=== PATIENT | female | born 1965 | race Caucasian/White ===

== ENCOUNTER 2020-08-26 19:50 | Emergency (ER) | payer BC ==
[2020-08-26 20:07] VITALS: BP 170/72; PULSE 95
--- NOTE | 2020-08-26 20:27 | EDM.PDOC ---
ED HPI GENERAL MEDICAL PROBLEM - General Chief Complaint: Lower Extremity Injury/Pain Stated Complaint: FELL DOWN STEP, TOP OF LEFT FOOT BUMP PER PT Time Seen by Provider: 08/26/20 20:10 Source of Information: Reports: Patient, RN, RN Notes Reviewed History Limitations: Reports: No Limitations - History of Present Illness INITIAL COMMENTS - FREE TEXT/NARRATIVE: Natalya is a 55 y/o female who presents to the ED via personal vehicle with complaints of pain to left, lateral foot. The patient reports about six hours she tripped down to stairs and injured the foot. She has noticed an increase and bruising and swelling to the extremity over the past several hours, prompting her to present today. She attest to inability to ambulate on the extremity. She denies loss of motor or sensory function to the foot. She has taken no medications for pain but rates her pain at a 4/10 while at rest and 9/10 while attempting to ambulate. Left Foot Pain Score (Numeric/FACES): 4 - Related Data Allergies Allergy/AdvReac Type Severity Reaction Status Date / Time No Known Allergies Allergy Verified 11/30/15 18:17 Home Meds: Home Meds FLUoxetine [PROzac] 40 mg PO BEDTIME 11/30/15 [History] LORazepam [Ativan] 1 mg PO DAILY 11/30/15 [History] Zolpidem [Ambien] 10 mg PO DAILY 11/30/15 [History] Past Medical History HEENT History: Reports: None Other Cardiovascular History: ablation done 10 years ago Respiratory History: Reports: Bronchitis, Recurrent, Pneumonia, Recurrent Gastrointestinal History: Reports: None Genitourinary History: Reports: None [employer] History: Reports: None Musculoskeletal History: Reports: None Neurological History: Reports: None Psychiatric History: Reports: Depression Endocrine/Metabolic History: Reports: None Hematologic History: Reports: None Immunologic History: Reports: None Oncologic (Cancer) History: Reports: None Dermatologic History: Reports: None - Infectious Disease History Infectious Disease History: Reports: Chicken Pox - Past Surgical History Head Surgeries/Procedures: Reports: None Social & Family History - Caffeine Use Caffeine Use: Reports: Soda Review of Systems - Review of Systems Review Of Systems: Comprehensive ROS is negative, except as noted in HPI. ED EXAM, GENERAL - Physical Exam Exam: See Below Exam Limited By: No Limitations General Appearance: Alert, No Apparent Distress Eye Exam: Bilateral Eye: EOMI, Normal Inspection, PERRL (3mm) Ears: Normal External Exam, Hearing Grossly Normal Nose: Normal Inspection Throat/Mouth: Normal Inspection, Normal Oropharynx, Normal Voice, No Airway Compromise Head: Atraumatic, Normocephalic Neck: Normal Inspection, Supple, Non-Tender, Full Range of Motion Respiratory/Chest: No Respiratory Distress, Lungs Clear, Normal Breath Sounds, No Accessory Muscle Use, Chest Non-Tender Cardiovascular: Normal Peripheral Pulses, Regular Rate, Rhythm, No Edema, No Gallop, No JVD, No Murmur, No Rub Peripheral Pulses: 2+: Radial (L), Radial (R), Dorsalis Pedis (L), Dorsalis Pedis (R) GI/Abdominal: Normal Bowel Sounds, Soft, No Distention, No Abnormal Bruit, No Mass, Pelvis Stable (Female) Exam: Deferred Rectal (Female) Exam: Deferred Back Exam: Normal Inspection, Full Range of Motion Extremities: Normal Capillary Refill, Leg Pain (To left, lateral dorsal foot), Limited Range of Motion (To left foot). No: Joint Swelling, Increased Warmth, Mottled, Pallor, Redness Neurological: Alert, Oriented, CN II-XII Intact, Normal Cognition, No Motor/Sensory Deficits, Abnormal Gait (Unable to ambulate without pain/limping) Psychiatric: Normal Affect, Normal Mood Skin Exam: Warm, Dry, Intact, Normal Color, No Rash, Ecchymosis (To left, lateral dorsal foot). No: Cyanosis, Erythema, Increased Warmth, Jaundice, Mottled, Pallor, Petechiae Course - Vital Signs Last Recorded V/S: Last Vital Signs Temp 98.8 F 08/26/20 20:02 Pulse 95 08/26/20 20:02 Resp 16 08/26/20 20:02 BP 170/72 H 08/26/20 20:02 Pulse Ox 98 08/26/20 20:02 - Orders/Labs/Meds Meds: Medications Discontinued Medications Generic Name Dose Route Start Last Admin Trade Name Narinderq PRN Reason Stop Dose Admin Ibuprofen 400 mg 08/26/20 20:31 08/26/20 20:37 Ibuprofen 400 Mg Tab PO 08/26/20 20:32 400 mg ONETIME ONE Administration - Radiology Interpretation Free Text/Narrative:: [facility] [place] [facility] Final Radiology Report Call: [phone] assistance Online chat: [email or web address] Name: NATALYA PICKERING Age: 55Years F Date: 08/26/2020 SSN: -- : [id number] Study: CR FOOT COMP MIN 3V LT Requesting Physician: Jazmyne Byrne Images: 3 Addl Studies: Provided Clinical History: Tripped down stairs; Pain and bruising to lateral Contrast: Contrast Medium: Contrast Amount: Contrast Method: CONFIDENTIALITY STATEMENT This report is intended only for use by the referring physician, and only in accordance with law. If you received this in error, call [phone]. Page 1 of 1 PROCEDURE INFORMATION: Exam: XR Left Foot Exam date and time: 08/26/2020 8:13 PM Age: 55 years old Clinical indication: Other: Pain; Additional info: Tripped down stairs; Pain and bruising to lateral TECHNIQUE: Imaging protocol: XR Left foot. Views: 3 or more views. COMPARISON: No relevant prior studies available. FINDINGS: Bones/joints: There is a minimally displaced transverse fracture through the base of the 5th metatarsal. Soft tissues: Mild overlying soft tissue swelling. IMPRESSION: Minimally displaced fracture through the base of the 5th metatarsal Thank you for allowing us to participate in the care of your patient. Dictated and Authenticated by: David Mullins MD 08/26/2020 9:00 PM Central Time ([place] & [place]) - Re-Assessments/Exams Free Text/Narrative Re-Assessment/Exam: 08/26/20 Xray of foot obtained. Findings of examination and imaging reviewed with patient. Will treat fifth metatarsal base fracture with post-op shoe, crutches, and OTC analgesics. Patient instructed to follow up with orthopedic surgeon for evaluation of fracture. Patient has requested images to be sent to [facility]. Discussed supportive cares for metatarsal fracture. Red flag signs and symptoms which would warrant reevaluation reviewed. Patient verbalized understanding and agreement with the plan of care. Departure - Departure Time of Disposition: 20:35 Disposition: Home, Self-Care 01 Condition: Good Clinical Impression: Fracture of base of fifth metatarsal bone Qualifiers: Encounter type: initial encounter Fracture type: closed Laterality: left Qualified Code(s): S92.352A - Displaced fracture of fifth metatarsal bone, left foot, initial encounter for closed fracture - Discharge Information *PRESCRIPTION DRUG MONITORING PROGRAM REVIEWED*: Not Applicable *COPY OF PRESCRIPTION DRUG MONITORING REPORT IN PATIENT DEAN: Not Applicable Instructions: Metatarsal Fracture Forms: ED Department Discharge Additional Instructions: 1.) Follow up with orthopedic surgeon in 3-[address] [facility] orthopedics number is , you may call Saturday to schedule a clinic appointment. 2.) You may take ibuprofen (Advil/Motrin) 400mg every six hours, as pain and swelling persists. You may also take acetaminophen (Tylenol) 650mg every six hours, as pain persists. You may stagger these medications so you are receiving a dose every three hours. 3.) You may apply ice to the affected area, as swelling persists; 20 minutes on every hour. 4.) Keep your foot elevated on pillows, while at rest. Sepsis Event Note (ED) - Evaluation Sepsis Screening Result: No Definite Risk - Focused Exam Vital Signs: Vital Signs Temp Pulse Resp BP Pulse Ox 08/26/20 20:02 98.8 F 95 16 170/72 H 98
[2020-08-26] MEDS ORDERED: Ibuprofen 400 MG Tab PO ONE (20:31)
--- NOTE | 2020-08-26 21:00 | CR ---
PROCEDURE INFORMATION: Exam: XR Left Foot Exam date and time: 08/26/2020 8:13 PM Age: 55 years old Clinical indication: Other: Pain; Additional info: Tripped down stairs; Pain and bruising to lateral TECHNIQUE: Imaging protocol: XR Left foot. Views: 3 or more views. COMPARISON: No relevant prior studies available. FINDINGS: Bones/joints: There is a minimally displaced transverse fracture through the base of the 5th metatarsal. Soft tissues: Mild overlying soft tissue swelling. IMPRESSION: Minimally displaced fracture through the base of the 5th metatarsal
== END 2020-08-26 20:46 | disposition home or self-care (01) ==
LOC: DL.ED 19:50
DX: S92.352A Displaced fracture of fifth metatarsal bone, left foot, initial encounter for closed fracture (principal); W10.9XXA Fall (on) (from) unspecified stairs and steps, initial encounter
CPT/HCPCS: 73630; 99283; A9270; 99284

== ENCOUNTER 2021-02-21 08:32 | Emergency (ER) | payer BC ==
[2021-02-21 08:57] VITALS: BP 145/81
[2021-02-21 09:26] LABS: CORONAVIRUS COVID-19 NAA NEGATIVE (NEGATIVE); RESPIRATORY SYNCYTIAL VIR NAA NEGATIVE (NEGATIVE)
[2021-02-21 09:37] VITALS: PULSE 100
[2021-02-21] MEDS ORDERED: Sodium Chloride 0.9% 10 ML Syringe FLUSH PRN (09:50)
[2021-02-21] MEDS ORDERED: Sodium Chloride 0.9% 1,000 ML IV ONE (10:17)
[2021-02-21] MEDS ORDERED: methylPREDNISolone Sodium Succinate 125 MG/2 ML SDV IVPUSH ONE (10:17)
[2021-02-21] MEDS ORDERED: Albuterol/Ipratropium 3.0-0.5 MG/3 ML Neb Soln NEB ONE (10:19)
[2021-02-21] MEDS ORDERED: Acetaminophen 500 MG Tab PO ONE (10:19)
[2021-02-21 10:31] LABS: CHLORIDE,CL 102 mmol/L (98-107); SODIUM,NA 141 mmol/L (136-145)
[2021-02-21] MEDS ORDERED: Levofloxacin/Dextrose 5%-Water 750 MG in Premix Bag 1 BAG IV ONE (11:11)
[2021-02-21] MEDS ORDERED: Codeine/Promethazine 10-6.25 MG/5 ML Syrup 5 ML UD Cup PO ONE (11:12)
[2021-02-21] MEDS ORDERED: Albuterol 6.7 GM Inhaler INH ONE (12:42)
== END 2021-02-21 13:43 | disposition home or self-care (01) ==
LOC: DL.ED 08:32
DX: J44.1 Chronic obstructive pulmonary disease with (acute) exacerbation (principal); J18.9 Pneumonia, unspecified organism; Z79.899 Other long term (current) drug therapy; Z72.0 Tobacco use; Z20.822 Contact with and (suspected) exposure to COVID-19
CPT/HCPCS: 0241U; 36415; 71046; 80053; 81001; 83605; 84484; 85025; 85379; 87040; 87081; 87430; 93005; 94640; 96365; 96366; 96375; 99285; A9270; J1956; J2930; J7030; J7620-GY

== ENCOUNTER 2023-05-19 21:16 | Emergency (ER) | payer BC ==
[2023-05-19] MEDS: Sodium Chloride 0.9% 10 ML Syringe FLUSH PRN (21:48)
[2023-05-19 21:53] LABS: BASOPHILS PERCENT AUTO 0.2 % (0.0-1.0); EOSINOPHILS PERCENT AUTO 0.1 % (1.0-3.0); HEMATOCRIT 46.8 % (37.0-47.0); HEMOGLOBIN 15.5 g/dL (12.0-16.0); LYMPHOCYTES PERCENT AUTO 7.6 % (20.5-50.1); MEAN CORPUSCULAR HEMOGLOBIN 28.8 pg (27.0-34.0); MEAN CORPUSCULAR HGB CONC 33.1 g/dL (33.0-35.0); MONOCYTES PERCENT AUTO 7.7 % (2-8); NEUTROPHILS PERCENT AUTO 84.4 % (42.2-75.2); PLATELET COUNT,PLT 205 10^3/uL (150-450); RED BLOOD CELL COUNT 5.38 10^6/uL (4.2-5.4); WHITE BLOOD CELL COUNT,WBC 20.1 10^3/uL (5.0-10.0)
[2023-05-19 21:56] LABS: ALBUMIN 3.6 g/dL (3.4-5.0); ANION GAP 16.8 mEq/L (7-13); BLOOD UREA NITROGEN,BUN 10 mg/dL (7-18); BUN/CREATININE RATIO 10.6 (No establ ref range); CALCIUM 8.7 mg/dL (8.5-10.1); CARBON DIOXIDE,CO2 25 mmol/L (21-32); CHLORIDE,CL 100 mmol/L (98-107); CREATININE 0.94 mg/dL (0.55-1.02); GLUCOSE RANDOM 108 mg/dL (70-99); MAGNESIUM 1.7 mg/dL (1.8-2.4); POTASSIUM,K 3.8 mmol/L (3.5-5.1); SODIUM,NA 138 mmol/L (136-145)
[2023-05-19] MEDS: Albuterol/Ipratropium 3.0-0.5 MG/3 ML Neb Soln NEB ONE (21:56)
[2023-05-19 22:08] LABS: A/G RATIO 0.88; ALANINE AMINOTRANSFERASE,ALT 44 U/L (14-59); ALKALINE PHOSPHATASE 87 U/L (46-116); ASPARTATE AMNIOTRANSFERASE,AST 16 U/L (15-37); BILIRUBIN TOTAL 0.7 mg/dL (0.2-1.0); PROTEIN TOTAL,TP 7.7 g/dL (6.4-8.2)
[2023-05-19 22:14] LABS: ESTIMATED GFR 71 mL/min (>=60)
[2023-05-19] MEDS: Lactated Ringers 1,000 ML IV ONE (22:18)
[2023-05-19 22:28] LABS: CORONAVIRUS COVID-19 NAA NEGATIVE (NEGATIVE); INFLUENZA A NAA NEGATIVE (NEGATIVE); INFLUENZA B NAA NEGATIVE (NEGATIVE); RESPIRATORY SYNCYTIAL VIR NAA NEGATIVE (NEGATIVE)
[2023-05-19 22:30] LABS: LACTIC ACID 1.6 mmol/L (0.4-2.0)
[2023-05-19] MEDS: predniSONE 20 MG Tab PO ONE (22:53)
[2023-05-19] MEDS: Azithromycin 500 MG in Sodium Chloride 0.9% 250 ML IV ONE (22:53)
[2023-05-19] MEDS: cefTRIAXone 1 GM Vial IVPUSH ONE (22:54)
[2023-05-19] MEDS: Acetaminophen 325 MG Tab PO ONE (23:34)
[2023-05-20] MEDS: Ketorolac 30 MG/ML SDV IVPUSH ONE (00:58)
[2023-05-20 03:18] VITALS: BP 109/54; PULSE 94
== END 2023-05-20 03:31 | disposition home or self-care (01) ==
LOC: DL.ED 21:16
DX: J44.1 Chronic obstructive pulmonary disease with (acute) exacerbation (principal); E05.90 Thyrotoxicosis, unspecified without thyrotoxic crisis or storm; R65.10 Systemic inflammatory response syndrome (SIRS) of non-infectious origin without acute organ dysfunction; G92.9 Unspecified toxic encephalopathy; Z79.899 Other long term (current) drug therapy; Z86.16 Personal history of COVID-19; Z86.19 Personal history of other infectious and parasitic diseases
CPT/HCPCS: 0241U; 36415; 71045; 80053; 83605; 83735; 85025; 93005; 96365; 96375; 99285; A9270; J0456; J0696; J1885; J7050; J7120; J7512; 93010; 99284; J3490; J7620-GY

== ENCOUNTER 2024-04-01 15:29 | Emergency (ER) | payer OTHER ==
[2024-04-01] MEDS ORDERED: Sodium Chloride 0.9% 10 ML Syringe FLUSH PRN (15:46)
[2024-04-01] MEDS: fentaNYL 100 MCG/2 ML SDV IVPUSH ONE (16:09)
[2024-04-01 16:10] LABS: BASOPHILS PERCENT AUTO 0.1 % (0.0-1.0); HEMATOCRIT 40.8 % (37.0-47.0); HEMOGLOBIN 13.4 g/dL (12.0-16.0); LYMPHOCYTES PERCENT AUTO 5.2 % (20.5-50.1); MEAN CORPUSCULAR HEMOGLOBIN 29.6 pg (27.0-34.0); MEAN CORPUSCULAR HGB CONC 32.8 g/dL (33.0-35.0); MEAN CORPUSCULAR VOLUME 90.3 fL (80-100); MONOCYTES PERCENT AUTO 5.7 % (2-8); PLATELET COUNT,PLT 211 10^3/uL (150-450); RED BLOOD CELL COUNT 4.52 10^6/uL (4.2-5.4); WHITE BLOOD CELL COUNT,WBC 13.9 10^3/uL (5.0-10.0)
[2024-04-01] MEDS: Ondansetron 4 MG/2 ML SDV IVPUSH ONE (16:10)
[2024-04-01] MEDS: Lactated Ringers 1,000 ML IV SCH ×2 (16:10→18:01)
[2024-04-01 16:23] VITALS: BP 124/71; PULSE 98
[2024-04-01 16:31] LABS: A/G RATIO 0.9; ALBUMIN 3.4 g/dL (3.4-5.0); ANION GAP 16.4 mEq/L (7-13); BILIRUBIN TOTAL 0.2 mg/dL (0.2-1.0); BUN/CREATININE RATIO 11.3 (No establ ref range); CALCIUM 8.6 mg/dL (8.5-10.1); CREATININE 1.41 mg/dL (0.55-1.02); EST CRCL DRUG DOSING (CG) 34.82 mL/min; MAGNESIUM 1.7 mg/dL (1.8-2.4); POTASSIUM,K 3.4 mmol/L (3.5-5.1)
[2024-04-01] MEDS: Aluminum Hydroxide/Magnesium Hydroxide/Simethicone Susp 30 ML Cup PO ONE (16:42)
[2024-04-01] MEDS: Magnesium Sulfate/D5W 1 GM/100 ML BAG IV ONE ×2 (17:20→17:55)
[2024-04-01] MEDS: Take Home: Acetaminophen/HYDROcodone 325-5 MG, 5 Tab Pack PO ONE (18:11)
[2024-04-01] MEDS: Take Home: Ondansetron 4 MG Tab.DIS, 5 Tab Pack PO ONE (18:11)
== END 2024-04-01 18:45 | disposition home or self-care (01) ==
LOC: DL.ED 15:29
DX: N20.0 Calculus of kidney (principal); J44.89 Other specified chronic obstructive pulmonary disease; Z79.899 Other long term (current) drug therapy; Z86.16 Personal history of COVID-19
CPT/HCPCS: 36415; 74176; 80053; 83735; 84484; 85025; 93005; 93010; 96361; 96365; 96375; 99284; A9270; J2405; J3010; J3475; J7120; Q0162

== ENCOUNTER 2024-04-21 15:45 | Emergency (ER) | payer OTHER ==
[2024-04-21] MEDS ORDERED: Sodium Chloride 0.9% 10 ML Syringe FLUSH PRN (15:55)
[2024-04-21] MEDS: Ondansetron 4 MG/2 ML SDV IVPUSH ONE (16:00)
[2024-04-21] MEDS: HYDROmorphone 1 MG/ML Syringe IVPUSH ONE (16:00)
[2024-04-21 16:16] LABS: BASOPHILS PERCENT AUTO 0.7 % (0.0-1.0); EOSINOPHILS PERCENT AUTO 1.5 % (1.0-3.0); HEMATOCRIT 41.8 % (37.0-47.0); HEMOGLOBIN 13.1 g/dL (12.0-16.0); LYMPHOCYTES PERCENT AUTO 17.3 % (20.5-50.1); MEAN CORPUSCULAR HEMOGLOBIN 29.1 pg (27.0-34.0); MEAN CORPUSCULAR HGB CONC 31.3 g/dL (33.0-35.0); MEAN CORPUSCULAR VOLUME 92.9 fL (80-100); NEUTROPHILS PERCENT AUTO 70.5 % (42.2-75.2); PLATELET COUNT,PLT 282 10^3/uL (150-450)
[2024-04-21 16:18] LABS: APPEARANCE,URINE SLIGHTLY CLOUDY (CLEAR); BILIRUBIN,URINE NEGATIVE (NEGATIVE); COLOR,URINE YELLOW (YELLOW); GLUCOSE,URINE NEGATIVE (NEGATIVE); KETONES,URINE NEGATIVE (NEGATIVE); LEUKOCYTE ESTERASE,URINE SMALL (NEGATIVE); NITRITE,URINE NEGATIVE (NEGATIVE); OCCULT BLOOD,URINE SMALL (NEGATIVE); PROTEIN,URINE 30 (NEGATIVE); UROBILINOGEN,URINE 0.2 mg/dL (0.2-1.0)
[2024-04-21 16:28] LABS: BACTERIA,URINE MODERATE /HPF (0-FEW/HPF); EPITHELIAL CELLS,URINE MANY /HPF (NOT SEEN); WBC,URINE 50-75 /HPF (0-5/HPF)
[2024-04-21 16:36] LABS: ALANINE AMINOTRANSFERASE,ALT 25 U/L (14-59); ALBUMIN 3.3 g/dL (3.4-5.0); ALKALINE PHOSPHATASE 66 U/L (46-116); ANION GAP 11.6 mEq/L (7-13); ASPARTATE AMNIOTRANSFERASE,AST 9 U/L (15-37); BILIRUBIN TOTAL 0.5 mg/dL (0.2-1.0); BLOOD UREA NITROGEN,BUN 9 mg/dL (7-18); C-REACTIVE PROTEIN 2.64 ng/dL (<=0.50); CALCIUM 8.7 mg/dL (8.5-10.1); CARBON DIOXIDE,CO2 30 mmol/L (21-32); CHLORIDE,CL 104 mmol/L (98-107); GLUCOSE RANDOM 93 mg/dL (70-99); POTASSIUM,K 3.6 mmol/L (3.5-5.1); PROTEIN TOTAL,TP 7.1 g/dL (6.4-8.2); SODIUM,NA 142 mmol/L (136-145)
[2024-04-21 16:37] LABS: A/G RATIO 0.87; ESTIMATED GFR 66 mL/min (>=60)
[2024-04-21 16:41] LABS: LACTIC ACID 1.6 mmol/L (0.4-2.0)
[2024-04-21 16:43] LABS: INR 0.9 (0.9-1.2); PROTHROMBIN TIME 9.8 SEC (9.0-12.0)
[2024-04-21 16:45] LABS: PTT,PARTIAL THROMBOPLSTIN TIME 24.7 SEC (22.0-34.0)
[2024-04-21] MEDS: Iopamidol 612 MG/ML 100 ML Bottle IVPUSH ONE (16:45)
[2024-04-21 18:25] VITALS: BP 124/71; PULSE 85
== END 2024-04-21 20:27 | disposition home or self-care (01) ==
LOC: DL.ED 15:45
DX: T40.2X1A Poisoning by other opioids, accidental (unintentional), initial encounter (principal); G89.29 Other chronic pain; M54.9 Dorsalgia, unspecified; J45.909 Unspecified asthma, uncomplicated; J44.9 Chronic obstructive pulmonary disease, unspecified; Z79.899 Other long term (current) drug therapy
CPT/HCPCS: 36415; 74178; 80053; 81001; 83605; 85025; 85610; 85730; 86140; 87040; 87086; 96374; 96375; 99284; J1171; J2405; Q9967; 87088; 87186